=== PATIENT | female | born 2000 | race Caucasian/White ===

== ENCOUNTER 2021-08-06 13:45 | Outpatient (CLI) | payer OTHER ==
[~2021-08-06] VITALS: Ht 175.3 cm; Wt 90.1 kg
[2021-08-06 13:45] VITALS: BP 133/84; PULSE 95; TEMP 97.6
--- NOTE | 2021-08-06 13:45 | NUR ---
Admits to L&D with c/o "I think my water broke." Explains her underwear were wet when she got back from walk. Denies any continued leaking of fluid. Reports positive movement. Denies any vaginal bleeding.
--- NOTE | 2021-08-06 13:53 | NUR ---
SVE 1-2/70/-3, posterior, soft, amnitrace negative. Exam dry, no fluid noted.
[2021-08-06 14:07] VITALS: BP 122/81; PULSE 88
--- NOTE | 2021-08-06 14:07 | NUR ---
Allowed off of EFM @ this time, as noted Category I strip, verbal order.
--- NOTE | 2021-08-06 14:19 | NUR ---
Discharged to home. Ambulatory off of unit, accompanied by significant other.
== END 2021-08-06 14:19 | disposition home or self-care (01) ==
LOC: LDRO 13:45
DX: Z34.93 Encounter for supervision of normal pregnancy, unspecified, third trimester (principal); Z3A.38 38 weeks gestation of pregnancy

== ENCOUNTER 2021-08-10 21:37 | Outpatient (CLI) | payer OTHER ==
[~2021-08-10] VITALS: Ht 172.7 cm; Wt 90.0 kg
[2021-08-10 22:00] VITALS: BP 133/90; PULSE 99; TEMP 98.1
--- NOTE | 2021-08-10 22:00 | NUR ---
G1L0 at 39 weeks and 1 day arrives to unit with complaint of bleeding. Pt reports she was in shower and had some blood running down her leg. Denies bleeding or leakage of fluid since, peripad on admission with no visible signs of bleeding or rupture. Clean gown on. Pt oriented to room, bed in low and locked position, call light within reach. US and toco explained and applied. Vital signs obtained. Admission assessment started. Plan of care reviewed with patient and significant other. SVE 1-2/75/-3, membranes intact, no blood on exam glove. Amnitrace negative.
[2021-08-10 23:05] VITALS: BP 137/83; PULSE 92
--- NOTE | 2021-08-10 23:15 | NUR ---
SVE unchanged over 1 hour. Discharge instructions reviewed with patient and significant other. Pt verbalized understanding. Pt seen ambulating off unit.
== END 2021-08-10 23:15 | disposition home or self-care (01) ==
LOC: LDRO 21:37 → LDR 22:12 → LDRO 23:15
DX: O26.853 Spotting complicating pregnancy, third trimester (principal); Z3A.39 39 weeks gestation of pregnancy
CPT/HCPCS: OP

== ENCOUNTER 2021-08-17 10:41 | Inpatient (IN) | payer OTHER ==
[2021-08-17] VITALS (43 sets, daily range): BP systolic 100–157; BP diastolic 48–98; PULSE 74–123; TEMP 97.9–99
[~2021-08-17] VITALS: Ht 172.7 cm; Wt 90.9 kg
--- NOTE | 2021-08-17 10:45 | NUR ---
1045 Pt ambulatory onto unit with spouse. Changed into clean gown. FHR monitor/TOCO applied. Pt denies any leaking of fluid, vaginal bleeding, regular contractions, or decreased movement. Plan of care discussed with patient. Pt verbalizes understanding.
[2021-08-17] MEDS ORDERED: TUMS500 MG (11:20)
--- NOTE | 2021-08-17 11:20 | NUR ---
1110 Dr. Rodríguez at bedside reviewing FHR strip. SVE per Anne /-2. AROM at 1112. Clear fluid noted. 1112 Pitocin started at 2mu/hr per protocol. Plan of care discussed. Pt verbalizes understanding.
--- NOTE | 2021-08-17 12:00 | NUR ---
Pt refuses Covid 19 rapid test. Risk benefits discussed.
[2021-08-17 12:11] LABS: BASO % 0.2 % (0.0-2.0); EOS # 0.2 K/mm3 (0.0-0.7); EOS % 1.6 % (0-4.0); GRAN # 7.3 K/mm3 (1.4-6.5); GRAN % 74.9 % (42.2-75.2); HEMOGLOBIN 10.6 g/dl (12.0-15.0); LYMPH # 1.5 K/mm3 (1.2-3.4); LYMPH % 14.9 % (20.0-51.0); MEAN CELL VOLUME 83 fl (80.0-95.0); MEAN CORPUSCULAR HEMOGLOBIN 27 pg (26.0-32.0); MEAN CORPUSCULAR HGB CONC 32 g/dl (33.0-37.0); MEAN PLATELET VOLUME 11.6 fl (7.4-10.4); MONO # 0.8 K/mm3 (0.1-0.6); PLATELET COUNT 251 K/mm3 (130-400); RED BLOOD COUNT 3.93 M/mm3 (4.10-5.30); REDCELL DISTRIBUTION WIDTH-CV 13.4 % (11.5-14.5)
[2021-08-17 12:13] LABS: HEMATOCRIT 32.7 % (35.0-45.0)
--- NOTE | 2021-08-17 13:25 | NUR ---
RN AT BEDSIDE ADJUSTING FHR MONITOR. DIFFICULTY TRACING DUE TO MATERNAL POSITION ON THE BIRTHING BALL.
--- NOTE | 2021-08-17 13:27 | NUR ---
RN AT BEDSIDE DIFFICULTY TRACING FHR DUE TO MATERNAL POSITION. RN ADJUSTING FHR MONITOR
--- NOTE | 2021-08-17 14:05 | NUR ---
Pt up to bathroom. RN standby assist. FHR monitor and TOCO reapplied after patient is repositioned.
--- NOTE | 2021-08-17 19:10 | NUR ---
SVE as noted, pt tolerated exam well. Turned to Kellen position. Discussed with pt and spouse that it would be time to push soon. Pt states "I'm scared" when asked about what she replied "pain" I reminded her that if the SVE wasn't painful that pushing shouldn't be either, and we can give her more epidural medication if need be.
--- NOTE | 2021-08-17 20:00 | NUR ---
SVE complete. Pushing instructions given
--- NOTE | 2021-08-17 20:54 | NUR ---
Dr Nashure into room to assist/assess pushing progress. Mirror placed for pt to view pushing progress.
--- NOTE | 2021-08-17 21:15 | NUR ---
Pt set up and prepped for delivery, pushing well.
--- NOTE | 2021-08-17 21:26 | NUR ---
Spontaneous delivery of head by Dr Rodríguez. After several pushes, it was noted that a shoulder dytocia was present. Staff notified, Kirk Baires maneuver by RN's. Dr Rodríguez performs [place] manuever. Delivery time 2126, shoulder dytocia time 45 seconds.
--- NOTE | 2021-08-17 21:33 | NUR ---
Placenta delivers spont and intact with 3 vessell cord. Pitocin gtt to bolus rate. Cord gases obtained. Perineal inspection by Dr Rodríguez reveals 4degree laceration. Lidocaine to perineum by Dr Rodríguez. Perineal repair by Dr Rodríguez.
--- NOTE | 2021-08-17 21:50 | NUR ---
Barrera catheter placed by Dr Rodríguez, perineal repair complete. Pericare done, ice pack to perineum, bed together. Dr Rodríguez discusses shoulder dystocia and 4th degree tear with pt and spouse, questions invited and answered.
[2021-08-18] VITALS (8 sets, daily range): BP systolic 106–134; BP diastolic 53–67; PULSE 81–112; TEMP 97–98
--- NOTE | 2021-08-18 04:00 | NUR ---
Pericare performed in bed, pad and panties on. Pt moves self to sit onedge of bed. Epidural tape removed. During removal pt states "I'm getting dizzy. Epidural removed without difficulty and pt laid back down. Pt took a few sips of water and stated "I feel better". Pivot transfer to wheelchair and transferred to room 208. Pt ambulated from door of room to bed without difficulty.
--- NOTE | 2021-08-18 09:12 | NUR ---
Initial visit attempt; Family resting, Inseamer left card of congratulations and God's blessings along with information regarding the availability of spiritual care at [facility].
--- NOTE | 2021-08-18 12:00 | NUR ---
PATIENT GIVEN SITZ BATH AND DEMONSTRATED USE. INSTRUCTED PATIENT TO LET ME KNOW WHEN SHE WANTED TO USE IT
[2021-08-19] MEDS ORDERED: IBU800 M1 PO (07:59)
[2021-08-19] MEDS ORDERED: PERCOCET 325 MG1 TA2 PO (08:00)
[2021-08-19 08:51] VITALS: BP 123/62; PULSE 76; TEMP 97.3
--- NOTE | 2021-08-19 08:56 | NUR ---
0700 received report from MASSIEL Mccormick
--- NOTE | 2021-08-19 14:08 | NUR ---
baby was unsuccessful due to not wanting to latch on or even wake up. Tried right nipple with no success and also diferent position from football to cradle position. Offered bottle milk to baby and baby is sucking and swallong well. He was able to take in 40 ml with no problem. Baby burped. feeding lasted 1420. MASSIEL Mccormick encouraged mom to pump and feed formula to stimulate her breast milk.
[2021-08-19 16:29] VITALS: BP 129/72; PULSE 87; TEMP 97.5
--- NOTE | 2021-08-19 18:43 | NUR ---
EXAMINED BABY AND VERY SLEEPY DURING EXAM-BLOOD SUGAR CHECKED THAT WAS 58. FDG PLAN MADE SINCE BABY NOT NURSING-WONT OPEN MOUTH WELL FOR LATCH. MOM GOING TO PUMP AND USE BOTTLE.
== END 2021-08-19 18:00 | disposition home or self-care (01) | DRG 768 ==
LOC: LDR 10:41 → OB 10:41 → LDR 11:28 → OB 11:28
PROVIDERS: ADMIT Student in an Organized Health Care Education/Training Program
PROC: 10E0XZZ Delivery of Products of Conception, External Approach (ICD-10-PCS; principal; 2021-08-17)
PROC: 0DQP0ZZ Repair Rectum, Open Approach (ICD-10-PCS; 2021-08-17)
PROC: 10907ZC Drainage of Amniotic Fluid, Therapeutic from Products of Conception, Via Natural or Artificial Opening (ICD-10-PCS; 2021-08-17)
PROC: 3E033VJ Introduction of Other Hormone into Peripheral Vein, Percutaneous Approach (ICD-10-PCS; 2021-08-17)
DX: O48.0 Post-term pregnancy (principal); Z37.0 Single live birth; O70.3 Fourth degree perineal laceration during delivery; O66.0 Obstructed labor due to shoulder dystocia; O69.81X0 Labor and delivery complicated by cord around neck, without compression, not applicable or unspecified; Z3A.40 40 weeks gestation of pregnancy
CPT/HCPCS: J2590; J7120